=== PATIENT | female | born 1975 | race Caucasian/White ===

== ENCOUNTER 2016-12-26 12:04 | Emergency (ER) | payer MEDICAID ==
[~2016-12-26] VITALS: Ht 160 cm; Wt 60.0 kg
[~2016-12-26 12:04] MED LIST: PREN1TAB49
[2016-12-26 12:15] VITALS: Ht 160 cm; Wt 60.0 kg
[2016-12-26 14:27] LABS: URINE BLOOD (Dip) POC 3+ (NEGATIVE)
[2016-12-26] MEDS ORDERED: NITR-58 PO (14:35)
--- NOTE | 2016-12-26 17:40 | ERD ---
ER Documentation Chief Complaint Date/Time DATE: 12/26/16 TIME: 17:38 Chief Complaint dysuria x 2 days HPI Patient is a 41-year-old female with no past medical history presents to the ED with dysuria and urgency 2 days. She denies fever or chills. She denies hematuria. Denies pelvic pain. Denies abdominal pain, nausea, vomiting or diarrhea. Denies chest pain, cough, shortness of breath or difficulty breathing. She has no other complaints. She states that she has been drinking a lot of cranberry juice which has helped with her symptoms. ROS All systems reviewed and are negative except as per history of present illness. Medications Home Meds Active Scripts Nitrofurantoin Monohyd Macrocr* (Macrobid*) 100 Mg Capsr, 100 MG PO BID for 14 Days, CAP Prov:LARON DUTTON PA-C 12/26/16 Reported Medications Vits W-Ca,Fe,Fa(<1MG) () 1 Tab Tablet 05/07/10 Allergies Allergies: Coded Allergies: No Known Allergies (Verified Allergy, Mild, 05/07/10) PMhx/Soc Medical and Surgical Hx: pt denies Medical Hx, pt denies Surgical Hx History of Surgery: Yes (CSECTION 2008) Anesthesia Reaction: No Hx Neurological Disorder: No Hx Respiratory Disorders: No Hx Cardiac Disorders: No Hx Psychiatric Problems: No Hx Miscellaneous Medical Probl: No Hx Alcohol Use: No Hx Substance Use: No Hx Tobacco Use: No Smoking Status: Never smoker FmHx Family History: No coronary disease, No diabetes, No other Physical Exam Vitals Vital Signs Date Time Temp Pulse Resp B/P Pulse Ox O2 Delivery O2 Flow Rate FiO2 12/26/16 12:15 98.5 85 18 107/68 98 Physical Exam GENERAL: Well-developed, well-nourished female. Appears in no acute distress. HEAD: Normocephalic, atraumatic. EYES: Pupils are equally reactive bilaterally. EOMs grossly intact. No conjunctival erythema. ENT: Moist mucous membranes. No uvula deviation. No kissing tonsils. No exudates. NECK: Supple. No lymphadenopathy or thyromegaly. No meningismus. negative kernig. negative brudinski. LUNG: Clear to auscultation bilaterally. No rhonchi, wheezing, rales or coarse breath sounds. HEART: Regular rate and rhythm. No murmurs, rubs or gallops. ABDOMEN: No scars, ecchymosis or rashes noted. Soft, nontender, and nondistended. Positive bowel sounds in all four quadrants. No rebound tenderness , no guarding. (-) McBurneys point tenderness. No CVA tenderness. BACK: No midline tenderness. SKIN: Normal color. Warm and dry. No rashes or lesions. Capillary refill < 2 seconds Results 24 hrs Laboratory Tests Test 12/26/16 14:29 Bedside Urine pH (LAB) 6.0 Bedside Urine Protein (LAB) Negative Bedside Urine Glucose (UA) Negative Bedside Urine Ketones (LAB) Negative Bedside Urine Blood 3+ Bedside Urine Nitrite (LAB) Negative Bedside Urine Leukocyte Esterase (L 1+ Procedures/MDM ER COURSE: I kept the patient and/or family informed of laboratory and diagnostic imaging results throughout the emergency room course. LABORATORY STUDIES Urine dip shows 1+ leukocytes with 2+ hemoglobin and no nitrites negative test MEDICAL DECISION MAKING: This is a 41-year-old female with no past medical history who presents with dysuria and urgency 2 days. Vital signs were reviewed. Patient is afebrile. Patient is not hypoxic. Patient is nontoxic or ill-appearing. Her urine dip shows 1+ leukocytes likely related to cystitis. Low suspicion for ovarian torsion, PID, tuboovarian abscess, ectopic , bowel obstruction, pyelonephritis, appendicitis, cervicitis, septic . DISCHARGE: At this time, patient is stable for discharge and outpatient management with no new complaints during the ER course. Patient was sent home with Macrobid.. Patient will be discharged home with instructions to recheck for new or worsening symptoms such as fever, nausea, weakness, LOC and to follow up with primary care in the next 1-2 days. Patient was advised to return to the ER for any new or worsening symptoms. Plan was discussed and patient and/or family understands and agrees. Home instructions were given. Departure Diagnosis: Primary Impression: Dysuria Condition: Stable Patient Instructions: Dysuria Additional Instructions: Llame al doctor MAANA y marion tripp SHRUTHI PARA DENTRO DE 1-2 GARCIA.Dgale a la secretaria que nosotros le instruimos hacer esta shruthi.Avise o llame si petersen condicin se empeora antes de la shruthi. Regresa aqui si peor o no mejor. LARON DUTTON PA-C December 26, 2016 17:40
== END 2016-12-26 15:05 | disposition home or self-care (01) ==
LOC: FTE 12:04
DX: R30.0 Dysuria (principal)
CPT/HCPCS: 81003

== ENCOUNTER 2017-01-22 18:36 | Emergency (ER) | payer MEDICAID ==
[~2017-01-22] VITALS: Ht 160 cm; Wt 60.0 kg
[~2017-01-22 18:36] MED LIST changes: +NITR-58 PO
[2017-01-22 18:39] VITALS: Ht 160 cm; Wt 60.0 kg
[2017-01-22] MEDS ORDERED: ALBU8.5H3 INH (18:54)
[2017-01-22] MEDS ORDERED: IBUP-1542 PO (18:54)
[2017-01-22] MEDS ORDERED: CETI10CA PO (18:54)
[2017-01-22] MEDS ORDERED: GUAI120S26 PO (18:54)
[2017-01-22] MEDS ORDERED: AZIT250T94 PO (18:54)
--- NOTE | 2017-01-22 19:00 | ERD ---
ER Documentation Chief Complaint Date/Time DATE: 01/22/17 TIME: 18:[address] and cough for 9 days HPI 41 year old female presents here in the ER for complaints of cough for 9 days, dry cough, does not cough up any phlegm or blood. Patient has episodes of wheezing at times. Patient has been having fever. Patient has been coughing too much, complaining of sore throat after vigorous coughing, burning pain 4/10 scale, is worse upon swallowing. Patient denies any sick contacts. Patient denies any chest pain or palpitations. Patient denies any dizziness. Patient took some Tylenol for fever controlled with mild relief. ROS All systems reviewed and are negative except as per history of present illness. Medications Home Meds Active Scripts Albuterol Sulfate* (Proair HFA*) 8.5 Gm Hfa.aer.ad, 2 PUFF INH Q4H Y for WHEEZING AND SOB, #1 INHALER Prov:KENDALL DINH NP 01/22/17 Azithromycin* (Zithromax*) 250 Mg Tablet, 250 MG PO .ZPACK DIRECTED, #6 TAB TAKE 500 MG (2 TABS) THE FIRST DAY THEN 250 MG (1 TAB) DAYS 2-5 Prov:KENDALL DINH NP 01/22/17 Ibuprofen* (Motrin*) 600 Mg Tab, 600 MG PO Q6H Y for PAIN AND OR ELEVATED TEMP, #30 TAB Prov:KENDALL DINH NP 01/22/17 Cetirizine Hcl* (Zyrtec*) 10 Mg Capsule, 10 MG PO DAILY, #30 TAB.CHEW Prov:KENDALL DINH NP 01/22/17 Vnvyhuzuzao-U-Kupyodqszo Hb* (Guaifenesin* DM Syrup) 120 Ml Syrup, 10 ML PO Q4H Y for COUGH, #120 ML Prov:KENDALL DINH NP 01/22/17 Nitrofurantoin Monohyd Macrocr* (Macrobid*) 100 Mg Capsr, 100 MG PO BID for 14 Days, CAP Prov:LARON DUTTON PA-C 12/26/16 Reported Medications Vits W-Ca,Fe,Fa(<1MG) () 1 Tab Tablet 05/07/10 Allergies Allergies: Coded Allergies: No Known Allergies (Verified Allergy, Mild, 05/07/10) PMhx/Soc History of Surgery: Yes (CSECTION 2008) Anesthesia Reaction: No Hx Neurological Disorder: No Hx Respiratory Disorders: No Hx Cardiac Disorders: No Hx Psychiatric Problems: No Hx Miscellaneous Medical Probl: No Hx Alcohol Use: No Hx Substance Use: No Hx Tobacco Use: No FmHx Family History: No coronary disease, No diabetes, No other Physical Exam Vitals Vital Signs Date Time Temp Pulse Resp B/P Pulse Ox O2 Delivery O2 Flow Rate FiO2 01/22/17 18:39 98.6 82 18 124/58 98 Physical Exam GENERAL: The patient is well developed and appropriate for usual state of health, in no apparent distress. CHEST: Clear to auscultation bilaterally. There are no rales, wheezes or rhonchi. HEART: Regular rate and rhythm. No murmurs, clicks, rubs or gallops. No S3 or S4. ABDOMEN: Soft, nontender and nondistended. Good bowel sounds. No rebound or guarding. No gross peritonitis. No gross organomegaly or masses. No Deutsch sign or McBurney point tenderness. BACK: No midline or flank tenderness. EXTREMITIES: Equal pulses bilaterally. There is no peripheral clubbing, cyanosis or edema. No focal swelling or erythema. Full range of motion. Grossly neurovascularly intact. NEURO: Alert and oriented. Cranial nerves 2-12 intact. Motor strength in all 4 extremities with 5/5 strength. Sensation grossly intact. Normal speech and gait. SKIN: There is no apparent rash or petechia. The skin is warm and dry. HEMATOLOGIC AND LYMPHATIC: There is no evidence of excessive bruising or lymphedema. No gross cervical, axillary, or inguinal lymphadenopathy. Procedures/MDM Medical Decision Making: Patient symptoms are most likely consistent with acute bronchitis most likely atypical infection concerning patient has been having a cough for 9 days and having fever. There is low suspicion for Pneumonia at this time since patients lungs sounds are clear, patient O2 saturation is normal and patient doesnt show any respiratory distress. Radiology exam is not indicated at this time. There is low suspicion for other cardiopulmonary emergencies at this time such as CHF, Pulmonary Embolism, Pneumothorax, Aortic Aneurysm or any other cardiopulmonary emergencies at this time. There is low suspicion for sepsis. Patient appears well and is hemodynamically stable. Fever is controlled with medicines. Disposition: Home. Condition: Stable Prescriptions: Guaifenesin DM Zyrtec ibuprofen albuterol azithromycin Instructions: Patient is advised to take medications as prescribed. Patient is advised to rest. Patient advised to increase fluid intake, do humidifier at home and if possible, do salt water gargles. Patient is advised that if symptoms are worse, shortness of breath, uncontrolled fever, stridor, vomiting, worst signs and symptoms to return to emergency department immediately. Otherwise, patient is advised to follow up with primary doctor in 5-7 days. Departure Diagnosis: Primary Impression: Acute bronchitis Bronchitis organism: unspecified organism Qualified Code: J20.9 - Acute bronchitis, unspecified organism Condition: Stable Patient Instructions: Bronchitis, Antiobiotic Treatment (Adult) KENDALL DIHN NP Jan 22, 2017 19:00
== END 2017-01-22 18:55 | disposition home or self-care (01) ==
LOC: E/R 18:36
DX: J20.9 Acute bronchitis, unspecified (principal)

== ENCOUNTER 2017-11-16 19:23 | Emergency (ER) | END 2017-11-16 20:47 | disposition home or self-care (01) ==

== ENCOUNTER 2018-02-20 22:13 | Emergency (ER) | END 2018-02-21 05:40 | disposition home or self-care (01) ==

== ENCOUNTER 2018-10-28 19:21 | Emergency (ER) | payer MEDICAID ==
[~2018-10-28] VITALS: Ht 144.8 cm; Wt 60.8 kg
[~2018-10-28 19:21] MED LIST changes: +ALBU8.5H8 INH; +AZIT250T PO; +BENZ-6 PO; +CETI10CA PO; +D-ME473S2 PO; +GUAI120S26 PO; +IBUP-1542 PO; +MED4DP PO; +NAPR-985 PO; +PHEN-538 PO
[2018-10-28 19:55] VITALS: Ht 144.8 cm; Wt 60.8 kg
--- NOTE | 2018-10-29 00:05 | ERD ---
ER Documentation Chief Complaint Chief Complaint painful/frequent urination x 8 days HPI 43-year-old female is here with 8 days of dysuria and increased urinary frequency. No hematuria. No nausea or vomiting. She has a history of urinary tract infections and this feels similar. Denies possibility. ROS All systems reviewed and are negative except as per history of present illness. Medications Home Meds Active Scripts Naproxen* (Naprosyn*) 500 Mg Tablet, 500 MG PO BID PRN for PAIN AND/OR INFLAMMATION, #30 TAB Prov:PERLA,EVELYNE 02/21/18 Phenazopyridine Hcl* (Pyridium*) 200 Mg Tab, 200 MG PO TID PRN for URINARY PAIN, #6 TAB Prov:PERLA,EVELYNE 18 Nitrofurantoin Monohyd Macrocr* (Macrobid*) 100 Mg Capsr, 100 MG PO BID for 7 Days, #14 CAP Prov:PERLA,EVELYNE 02/21/18 Azithromycin* (Zithromax*) 250 Mg Tablet, 250 MG PO .AlleyPACK DIRECTED, #6 TAB TAKE 500 MG (2 TABS) THE FIRST DAY THEN 250 MG (1 TAB) DAYS 2-5 Prov:PILAR NEGRON PA-C 11/16/17 Dextromethorphan Hb-Promethazine Hcl* (Promethazine DM* Syrup) 473 Ml Syrup, 5 ML PO Q6 PRN for COUGH, #100 ML Prov:PILAR NEGRON PA-C 11/16/17 Benzonatate* (Tessalon Perle*) 100 Mg Capsule, 100 MG PO Q8H PRN for COUGH, #30 CAP Prov:PILAR NEGRON PA-C 11/16/17 Methylprednisolone* (Medrol* DOSE PACK) 4 Mg/Dose-Pack Tab.ds.pk, 4 MG PO . DIRECTED, #1 PACKET Prov:PILAR NEGRON PA-C 11/16/17 Albuterol Sulfate* (Proair HFA*) 8.5 Gm Hfa.aer.ad, 2 PUFF INH Q4, #1 INHALER Prov:PILAR NEGRON PA-C 11/16/17 Albuterol Sulfate* (Proair HFA*) 8.5 Gm Hfa.aer.ad, 2 PUFF INH Q4H PRN for WHEEZING AND SOB, #1 INHALER Prov:KENDALL DINH NP 01/22/17 Azithromycin* (Zithromax*) 250 Mg Tablet, 250 MG PO .ZPACK DIRECTED, #6 TAB TAKE 500 MG (2 TABS) THE FIRST DAY THEN 250 MG (1 TAB) DAYS 2-5 Prov:KENDALL DINH [employer] 01/22/17 Ibuprofen* (Motrin*) 600 Mg Tab, 600 MG PO Q6H PRN for PAIN AND OR ELEVATED TEMP, #30 TAB Prov:KENDALL DINH NP 01/22/17 Cetirizine Hcl* (Zyrtec*) 10 Mg Capsule, 10 MG PO DAILY, #30 TAB.CHEW Prov:KENDALL DINH NP 01/22/17 Cdrndsijdqi-K-Wvfkxudife Hb* (Guaifenesin* DM Syrup) 120 Ml Syrup, 10 ML PO Q4H PRN for COUGH, #120 ML Prov:KENDALL DINH NP 01/22/17 Nitrofurantoin Monohyd Macrocr* (Macrobid*) 100 Mg Capsr, 100 MG PO BID for 14 Days, CAP Prov:LARON DUTTON PA-C 12/26/16 Reported Medications Vits W-Ca,Fe,Fa(<1MG) () 1 Tab Tablet 05/07/10 Allergies Allergies: Coded Allergies: No Known Allergies (Verified Allergy, Mild, 05/07/10) PMhx/Soc History of Surgery: Yes (CSECTION 2008) Anesthesia Reaction: No Hx Neurological Disorder: No Hx Respiratory Disorders: No Hx Cardiac Disorders: No Hx Psychiatric Problems: No Hx Miscellaneous Medical Probl: No Hx Alcohol Use: No Hx Substance Use: No Hx Tobacco Use: No FmHx Family History: No diabetes Physical Exam Vitals Vital Signs Date Temp Pulse Resp B/P (MAP) Pulse Ox O2 O2 Flow FiO2 Time Delivery Rate 10/28/18 98.6 82 18 116/68 100 19:55 (84) Physical Exam INITIAL VITAL SIGNS: Reviewed by me GENERAL: Awake, alert and oriented x 4, well appearing, nontoxic, speaking in full sentences. No acute distress HEAD: Atraumatic NECK: Supple. No masses. Full range of motion. No meningismus. No midline tenderness. RESPIRATORY: Clear to auscultation bilaterally. Symmetric chest wall rise. No wheezing or rales. No accessory muscle use. CV: Regular rate and rhythm. No murmurs, rubs, or gallops. ABDOMEN: Soft, non-distended. Nontender. Negative [place]. Negative McBurneys point tenderness. No CVA tenderness bilaterally. No guarding. No rebound. : Deffered. Procedures/MDM This is a 43-year-old female who presents with UTI symptoms. I doubt pyelonephritis or kidney stones. She has had UTIs in the past and this feels similar. She is discharged with Macrobid and Pyridium. Patient counseled regarding my diagnostic impression and care plan. Prior to discharge all questions answered. Pt agrees with treatment plan and understands strict return precautions. Pt is instructed to follow up with primary care provider within 24- 48 hours. Precautionary instructions provided including instructions to return to the ER if not improving or for any worsening or changing symptoms or concerns. Departure Diagnosis: Primary Impression: Dysuria Condition: Stable YADIRA RAUSCH PA-C Oct 29, 2018 00:05
[2018-10-29] MEDS ORDERED: NITR-58 PO (00:07)
[2018-10-29] MEDS ORDERED: PHEN-538 PO (00:07)
[2018-10-29 00:53] VITALS: BP 110/73; PULSE 64; RESP 18
== END 2018-10-29 01:09 | disposition home or self-care (01) ==
LOC: FTE 19:21
DX: R30.0 Dysuria (principal)
CPT/HCPCS: 81003; 81025; 87086; Z7502; 99283

== ENCOUNTER 2019-02-16 04:43 | Emergency (ER) | payer MEDICAID ==
[~2019-02-16] VITALS: Ht 154.9 cm; Wt 61.0 kg
[~2019-02-16 04:43] MED LIST changes: +GUAI120S25 PO; -GUAI120S26 PO
[2019-02-16 04:44] VITALS: Ht 154.9 cm; Wt 61.0 kg
[2019-02-16] MEDS ORDERED: ONDANSETRON 4 MG INJ IV STA (06:40)
[2019-02-16] MEDS ORDERED: SOD CHLORIDE 0.9% 1,000 ML IV STA (06:40)
[2019-02-16] MEDS ORDERED: ONDA4TAB8 PO (07:49)
[2019-02-16] MEDS ORDERED: LOPE2CAP PO (07:49)
--- NOTE | 2019-02-16 07:51 | ERD ---
ER Documentation Chief Complaint Chief Complaint AP, VOMITING X'S 3 DAYS HPI 44-year-old female presents the emergency department complaining of abdominal pain, nausea vomiting and diarrhea. Patient states that for the last 3 days, she is had the above symptoms. Her abdominal pain is visceral, nonspecific and nonlocalized. She reports no fevers or chills. She states that she has had nausea with no significant emesis. She has loose stool and watery diarrhea with no passage of blood in the stool. She reports no dysuria or hematuria or gynecologic symptoms. She is been able to tolerate oral intake. ROS All systems reviewed and are negative except as per history of present illness. Medications Home Meds Active Scripts Ondansetron Hcl* (Zofran*) 4 Mg Tablet, 4 MG PO Q8H PRN for NAUSEA AND/OR VOMITING, #30 TAB Prov:NATHALIE ZHOU 02/16/19 Loperamide Hcl* (Imodium*) 2 Mg Capsule, 2 MG PO .AFTER EA LOOSE BM PRN for DIARRHEA, #10 TAB Prov:NATHALIE ZHOU 02/16/19 Phenazopyridine Hcl* (Pyridium*) 200 Mg Tab, 200 MG PO TID PRN for URINARY PAIN, #6 TAB Prov:YADIRA RAUSCH PA-C 10/29/18 Nitrofurantoin Monohyd Macrocr* (Macrobid*) 100 Mg Capsr, 100 MG PO BID for 7 Days, CAP Prov:YADIRA RAUSCH PA-C 10/29/18 Naproxen* (Naprosyn*) 500 Mg Tablet, 500 MG PO BID PRN for PAIN AND/OR INFLAMMATION, #30 TAB Prov:PERLA,EVELYNE 02/21/18 Phenazopyridine Hcl* (Pyridium*) 200 Mg Tab, 200 MG PO TID PRN for URINARY PAIN, #6 TAB Prov:PERLA,EVELYNE 02/21/18 Nitrofurantoin Monohyd Macrocr* (Macrobid*) 100 Mg Capsr, 100 MG PO BID for 7 Days, #14 CAP Prov:PERLA,EVELYNE 02/21/18 Azithromycin* (Zithromax*) 250 Mg Tablet, 250 MG PO .AlleyPACK DIRECTED, #6 TAB TAKE 500 MG (2 TABS) THE FIRST DAY THEN 250 MG (1 TAB) DAYS 2-5 Prov:PILAR NEGRON PA-C 11/16/17 Dextromethorphan Hb-Promethazine Hcl* (Promethazine DM* Syrup) 473 Ml Syrup, 5 ML PO Q6 PRN for COUGH, #100 ML Prov:PILAR NEGRON PA-C 11/16/17 Benzonatate* (Tessalon Perle*) 100 Mg Capsule, 100 MG PO Q8H PRN for COUGH, #30 CAP Prov:PILAR NEGRON PA-C 11/16/17 Methylprednisolone* (Medrol* DOSE PACK) 4 Mg/Dose-Pack Tab.ds.pk, 4 MG PO . DIRECTED, #1 PACKET Prov:PILAR NEGRON PA-C 11/16/17 Albuterol Sulfate* (Proair HFA*) 8.5 Gm Hfa.aer.ad, 2 PUFF INH Q4, #1 INHALER Prov:PILAR NEGRON PA-C 11/16/17 Albuterol Sulfate* (Proair HFA*) 8.5 Gm Hfa.aer.ad, 2 PUFF INH Q4H PRN for WHEEZING AND SOB, #1 INHALER Prov:KENDALL DINH NP 01/22/17 Azithromycin* (Zithromax*) 250 Mg Tablet, 250 MG PO .ZPACK DIRECTED, #6 TAB TAKE 500 MG (2 TABS) THE FIRST DAY THEN 250 MG (1 TAB) DAYS 2-5 Prov:KENDALL DINH NP 01/22/17 Ibuprofen* (Motrin*) 600 Mg Tab, 600 MG PO Q6H PRN for PAIN AND OR ELEVATED TEMP, #30 TAB Prov:KENDALL DINH NP 01/22/17 Cetirizine Hcl* (Zyrtec*) 10 Mg Capsule, 10 MG PO DAILY, #30 TAB.CHEW Prov:KENDALL DINH NP 01/22/17 Bzvlnasfvsf-K-Gvfwtwkkkj Hb* (Guaifenesin* DM Syrup) 120 Ml Syrup, 10 ML PO Q4H PRN for COUGH, #120 ML Prov:KENDALL DINH NP 01/22/17 Nitrofurantoin Monohyd Macrocr* (Macrobid*) 100 Mg Capsr, 100 MG PO BID for 14 Days, CAP Prov:LARON DUTTON PA-C 12/26/16 Reported Medications Vits W-Ca,Fe,Fa(<1MG) () 1 Tab Tablet 05/07/10 Allergies Allergies: Coded Allergies: No Known Allergies (Verified Allergy, Mild, 05/07/10) PMhx/Soc History of Surgery: Yes (CSECTION 2008) Anesthesia Reaction: No Hx Neurological Disorder: No Hx Respiratory Disorders: No Hx Cardiac Disorders: No Hx Psychiatric Problems: No Hx Miscellaneous Medical Probl: No Hx Alcohol Use: No Hx Substance Use: No Hx Tobacco Use: No Smoking Status: Never smoker Physical Exam Vitals Vital Signs Date Temp Pulse Resp B/P (MAP) Pulse Ox O2 O2 Flow FiO2 Time Delivery Rate 02/16/19 97.4 81 18 107/66 97 04:44 (80) Physical Exam GENERAL: The patient is well developed and appropriate for usual state of health in no apparent distress HEENT: Pupils equal, round, and reactive to light. EOMI. There is no scleral icterus. NECK: C-spine is soft and supple, there is no meningismus. There is no cervical lymphadenopathy. LUNGS: Clear to auscultation bilaterally. There are no rales, wheezes or rhonchi. HEART: Regular rate and rhythm, no murmurs, clicks, rubs or gallops. ABDOMEN: Soft, non-tender, non-distended. There are bowel sounds in all four quadrants. No rebound or guarding. EXTREMITIES: There is no peripheral cyanosis or edema. No focal swelling or erythema. NEURO: The patient moves all four extremities with 5/5 strength. Cranial nerves II - XII are intact. Normal gait. Alert and oriented SKIN: There is no apparent rash or petechiae. HEME/LYMPHATIC: There is no evidence of excessive bruising or lymphedema. PSYCHIATRIC: The patient does not appear anxious or depressed. Result Diagram: 02/16/19 0652 02/16/19 0652 Results 24 hrs Laboratory Tests Test 02/16/19 06:52 02/16/19 06:58 White Blood Count 7.8 10^3/ul Red Blood Count 4.56 10^6/ul Hemoglobin 13.5 g/dl Hematocrit 40.4 % Mean Corpuscular Volume 88.6 fl Mean Corpuscular Hemoglobin 29.6 pg Mean Corpuscular Hemoglobin Concent 33.4 g/dl Red Cell Distribution Width 12.8 % Platelet Count 239 10^3/UL Mean Platelet Volume 8.9 fl Immature Granulocytes % 0.300 % Neutrophils % 66.1 % Lymphocytes % 21.3 % Monocytes % 11.6 % Eosinophils % 0.6 % Basophils % 0.1 % Nucleated Red Blood Cells % 0.0 /100WBC Immature Granulocytes # 0.020 10^3/ul Neutrophils # 5.1 10^3/ul Lymphocytes # 1.7 10^3/ul Monocytes # 0.9 10^3/ul Eosinophils # 0.1 10^3/ul Basophils # 0.0 10^3/ul Nucleated Red Blood Cells # 0.0 10^3/ul Urine Color YELLOW Urine Clarity SLIGHTLY CLOUDY Urine pH 5.0 Urine Specific [place] 1.030 Urine Ketones NEGATIVE mg/dL Urine Nitrite NEGATIVE mg/dL Urine Bilirubin NEGATIVE mg/dL Urine Urobilinogen NEGATIVE mg/dL Urine Leukocyte Esterase NEGATIVE Deb/ul Urine Microscopic RBC 24 /HPF Urine Microscopic WBC 2 /HPF Urine Squamous Epithelial Cells FEW /HPF Urine Bacteria FEW /HPF Urine Mucus MODERATE /HPF Urine Hemoglobin 2+ mg/dL Urine Glucose NEGATIVE mg/dL Urine Total Protein 1+ mg/dl Sodium Level 143 mmol/L Potassium Level 3.8 mmol/L Chloride Level 109 mmol/L Carbon Dioxide Level 23 mmol/L Anion Gap 11 Blood Urea Nitrogen 13 mg/dl Creatinine 0.69 mg/dl Est Glomerular Filtrat Rate mL/min > 60 mL/min Glucose Level 93 mg/dl Calcium Level 8.5 mg/dl Total Bilirubin 0.4 mg/dl Direct Bilirubin 0.00 mg/dl Indirect Bilirubin 0.4 mg/dl Aspartate Amino Transf (AST/SGOT) 46 IU/L Alanine Aminotransferase (ALT/SGPT) 53 IU/L Alkaline Phosphatase 76 IU/L Total Protein 8.0 g/dl Albumin 4.3 g/dl Globulin 3.70 g/dl Albumin/Globulin Ratio 1.16 Lipase 93 U/L POC Beta HCG, Qualitative NEGATIVE Current Medications Medications Dose Sig/Mehdi Start Time Status Last (Trade) Ordered Route PRN Stop Time Admin Dose Reason Admin Sodium 1,000 ml @ Q1H STAT 02/16/19 DC 02/16/19 Chloride 1,000 mls/hr IV 06:40 02/16/19 07:01 07:39 Ondansetron 4 mg ONCE STAT 02/16/19 DC 02/16/19 HCl (Zofran IV 06:40 02/16/19 07:01 Inj) 06:42 Procedures/MDM Patient was taken to a room, seen and evaluated. Comfort measures were initiated. Diagnostic tests were ordered and reviewed. 3 LEAD RHYTHM STRIP: Normal sinus rhythm without ectopy REEVALUATION: 0750: Diagnostic tests were appreciated. Serial examinations of the patient appeared normal. She appeared much better after hydration. MEDICAL DECISION MAKIN-year-old female presents with what appears to be a gastroenteritis type picture. Her overall clinical presentation, multiple re peat evaluations as well as her lab work does not indicate significant sepsis, evidence of appendicitis or other high-risk intra-abdominal concerns. She is appropriate for outpatient supportive management after hydration in the emergency department. Departure Diagnosis: Primary Impression: Diarrhea Condition: Stable Patient Instructions: Treating Diarrhea Additional Instructions: Consulte a petersen mdico para el seguimiento segn lo discutido. Lleve tripp copia de los resultados de petersen prueba, si corresponde, a esta visita de seguimiento. Consulte a petersen mdico o regrese aqu si kanika sntomas no mejoran destini se esperaba. En cualquier momento, regrese al departamento de emergencias por cualquier cambio o empeoramiento en kanika sntomas. NATHALIE ZHOU Feb 16, 2019 07:51
[2019-02-16 07:55] VITALS: BP 117/67; PULSE 88; RESP 18
== END 2019-02-16 07:57 | disposition home or self-care (01) ==
LOC: E/R 04:43
DX: R19.7 Diarrhea, unspecified (principal)
CPT/HCPCS: 36415; 80053; 81001; 81025; 83690; 85025; 96361; 96374; J2405; J7030; Z7502